=== PATIENT | female | born 1985 | race Caucasian/White ===

== ENCOUNTER 2017-09-14 12:41 | Emergency (ER) | payer OTHER ==
[~2017-09-14] VITALS: Ht 160 cm; Wt 63.5 kg
[2017-09-14 12:46] VITALS: BP 145/82
[2017-09-14] MEDS ORDERED: MECLIZINE 25 MG TAB PO ONE (13:50)
[2017-09-14] MEDS ORDERED: DEXAMETHASONE 10 MG/ML VIAL IM ONE (13:50)
[2017-09-14] MEDS ORDERED: KETOROLAC 60 MG/2 ML VIAL IM ONE (13:50)
[2017-09-14 15:05] VITALS: BP 138/84
== END 2017-09-14 15:05 | disposition home or self-care (01) ==
LOC: MED 12:41
DX: T70.0XXA Otitic barotrauma, initial encounter (principal); R51 Headache; X58.XXXA Exposure to other specified factors, initial encounter
CPT/HCPCS: 70450; 81002; 81025; 96372; 99284; J1100; J1885; J8597

== ENCOUNTER 2019-02-06 18:29 | Emergency (ER) | payer OTHER ==
[~2019-02-06] VITALS: Ht 160 cm; Wt 64.4 kg
[2019-02-06 18:40] VITALS: BP 112/79
--- NOTE | 2019-02-06 18:48 | NUR ---
PT AMBULATED TO BED
--- NOTE | 2019-02-06 18:52 | NUR ---
PATIENT PRESENTS TO ED WITH CHEST PAIN TO RIGHT SIDE RADIATES TO UNDER BREAST AREA TO BACK X3 DAYS, CONSTANT PAIN. NUMBNESS TO HANDS X2 WEEKS . DENIES N/V/D; LUNGS CLEAR BL; HR EVEN AND REGULAR;PATIENT STATES PAIN OF 10/10 AT THIS TIME; VSS; PATIENT POSITIONED FOR COMFORT; HOB ELEVATED; BEDRAILS UP X2; BED DOWN. ER MD MADE AWARE OF PT STATUS.
--- NOTE | 2019-02-06 18:55 | NUR ---
EKG completed at bedside by EMT.
--- NOTE | 2019-02-06 19:05 | NUR ---
REPORT GIVEN TO CODE ENFORCEMENT INSPECTOR FOR CONTINUE OF CARE
--- NOTE | 2019-02-06 19:07 | NUR ---
PT SITTING UP IN [facility]; PT REPORTS RIGHT SIDE CHEST PAIN UNDER RIGHT BREAST RADIATING INTO BACK. REPORTS HAVING SOB PRIOR TO SITTING UP IN BED; REPORTS IMPROVEMENT IN BREATHING.
--- NOTE | 2019-02-06 19:07 | NUR ---
REPORT RECEIVED FROM TYLER GARCIA. TRANSFER OF CARE AT THIS TIME.
--- NOTE | 2019-02-06 19:08 | NUR ---
DR. NUÑEZ EVALUATING AT BEDSIDE.
--- NOTE | 2019-02-06 19:08 | NUR ---
Christina vora in ED - 02/06/[address] at [address] Bridges examining patient.
[2019-02-06] MEDS ORDERED: KETOROLAC 60 MG/2 ML VIAL IM ONE (19:15)
--- NOTE | 2019-02-06 19:25 | NUR ---
PT RECEIVED 60 MG IM TORADOL FOR 10/10 ATYPICAL CHEST PAIN. WILL REASSESS.
--- NOTE | 2019-02-06 19:45 | NUR ---
PT REPORTS PAIN RELIEF; 3/10 PAIN. STATES SHE FEELS "MORE RELAXED".
[2019-02-06 19:47] VITALS: BP 114/63
--- NOTE | 2019-02-06 19:47 | NUR ---
Patient discharged with v/s stable. Written and verbal after care instructions given and explained. Patient alert, oriented and verbalized understanding of instructions. Ambulatory with steady gait. All questions addressed prior to discharge. ID band removed. Patient advised to follow up with PMD. Rx of Motrin 600 mg, Atarax and Marilla given. Patient educated on indication of medication including possible reaction and side effects. Opportunity to ask questions provided and answered.
== END 2019-02-06 19:47 | disposition home or self-care (01) ==
LOC: MED 18:29
DX: F41.9 Anxiety disorder, unspecified (principal); F17.200 Nicotine dependence, unspecified, uncomplicated; Z98.890 Other specified postprocedural states
CPT/HCPCS: 93005; 96372; 99283; J1885